=== PATIENT | male | born 1980 | race Caucasian/White ===

== ENCOUNTER 2024-09-15 09:57 | Outpatient (CLI) | payer MEDICAID, SELFPAY | END 2024-09-15 09:58 | disposition home or self-care (01) | LOC: AMB 09-21 08:25 | PROVIDERS: Visit Provider Emergency Medicine | DX: S99.911A Unspecified injury of right ankle, initial encounter (principal); S09.93XA Unspecified injury of face, initial encounter; V47.5XXA Car driver injured in collision with fixed or stationary object in traffic accident, initial encounter; Y92.410 Unspecified street and highway as the place of occurrence of the external cause | CPT/HCPCS: A0425; A0433 ==